=== PATIENT | female | born 1970 | race Caucasian/White ===

== ENCOUNTER 2016-05-27 14:17 | Emergency (ER) | payer BC ==
[2016-05-27 15:16] LABS: HEMOGLOBIN 15.4 gm/dl (12.3-15.3); RED BLOOD COUNT 5.13 M/UL (4.00-5.10)
[2016-05-27 15:36] LABS: BUN/CREATININE RATIO 16 (0-10)
== END 2016-05-27 18:15 | disposition home or self-care (01) ==
LOC: ER1 14:17
PROVIDERS: Emergency Medicine
DX: J40 Bronchitis, not specified as acute or chronic (principal); J44.9 Chronic obstructive pulmonary disease, unspecified; I10 Essential (primary) hypertension; Z88.0 Allergy status to penicillin; Z79.899 Other long term (current) drug therapy
CPT/HCPCS: 36415; 71020; 80053; 84484; 85025; 85379; 87040; 93005; 94640; 94664; 96365; 96375; 96376; 99285; J0696; J2270; J2405; J2930; J7050

== ENCOUNTER 2016-05-29 12:30 | Emergency (ER) | payer BC ==
[2016-05-29 13:20] LABS: HEMOGLOBIN 15.2 gm/dl (12.3-15.3); RED BLOOD COUNT 5.01 M/UL (4.00-5.10)
[2016-05-29 13:27] LABS: WHITE BLOOD COUNT 9.6 K/UL (4.5-11.0)
[2016-05-29 13:39] LABS: BUN/CREATININE RATIO 20 (0-10)
== END 2016-05-29 16:45 | disposition home or self-care (01) ==
LOC: ER1 12:30
PROVIDERS: Specialist/Technologist Athletic Trainer
DX: J44.1 Chronic obstructive pulmonary disease with (acute) exacerbation (principal); R09.02 Hypoxemia; R79.89 Other specified abnormal findings of blood chemistry; J45.909 Unspecified asthma, uncomplicated; Z88.0 Allergy status to penicillin; I10 Essential (primary) hypertension; Z90.710 Acquired absence of both cervix and uterus
CPT/HCPCS: 36415; 36600; 71020; 71250; 80053; 82550; 82553; 82803; 83605; 83874; 83880; 84484; 85025; 85379; 87040; 93005; 96374; 96375; 96376; 99284; J1642; J2270; J2405; J2930

== ENCOUNTER 2016-07-29 23:08 | Inpatient (IN) | payer BC ==
[~2016-07-29] VITALS: Ht 160 cm; Wt 58.1 kg
[2016-07-30 00:11] LABS: HEMOGLOBIN 15.4 gm/dl (12.3-15.3); RED BLOOD COUNT 5.12 M/UL (4.00-5.10); WHITE BLOOD COUNT 8.3 K/UL (4.5-11.0)
[2016-07-30 00:27] LABS: BUN/CREATININE RATIO 30 (0-10)
[2016-07-30] MEDS ORDERED: PROLASTIN C1000 MG IV (04:41)
[2016-07-30] MEDS ORDERED: ADVAIR 250-501 EACH INH (04:43)
[2016-07-30] MEDS ORDERED: PRILOSEC OTC20 MG PO (04:46)
[2016-07-30] MEDS ORDERED: SPIRIVA18 MCG INH (04:49)
[2016-07-30] MEDS ORDERED: DALIRESP500 MCG PO (04:49)
[2016-07-30] MEDS ORDERED: SINGULAIR10 MG PO (04:49)
[2016-07-30] MEDS ORDERED: CLARITIN10 MG PO (04:50)
[2016-07-30] MEDS ORDERED: NORVASC 5 MG TAB5 MG PO (04:52)
[2016-07-30] MEDS ORDERED: DOXYCYCLINE HY100 MG PO (04:53)
[2016-07-31 06:20] LABS: HEMOGLOBIN 13.6 gm/dl (12.3-15.3)
[2016-07-31 06:40] LABS: BUN/CREATININE RATIO 27 (0-10)
[2016-07-31 06:43] LABS: RED BLOOD COUNT 4.6 M/UL (4.00-5.10); WHITE BLOOD COUNT 16.8 K/UL (4.5-11.0)
[2016-07-31 14:31] LABS: BORDETELLA PERTUSSIS Not Detected (Negative); CHLAMYDOPHLA PNEUMONIAE Not Detected (Negative); CORONAVIRUS HKU1 Not Detected (Negative); CORONAVIRUS NL63 Not Detected (Negative); CORONAVIRUS OC43 Not Detected (Negative); CORONOAVIRUS 229E Not Detected (Negative); HUMAN METAPNEUMOVIRUS Not Detected (Negative); HUMAN RHINOVIRUS/ENTEROVIRUS Not Detected (Negative); INFLUENZA A Not Detected (Negative); INFLUENZA A H-1-2009 Not Detected (Negative); INFLUENZA A H1 Not Detected (Negative); INFLUENZA A H3 Not Detected (Negative); INFLUENZA B Not Detected (Negative); MYCOPLASMA PNEUMONIAE Not Detected (Negative); PARAINFLUENZA VIRUS 1 Not Detected (Negative); PARAINFLUENZA VIRUS 2 Not Detected (Negative); PARAINFLUENZA VIRUS 3 Not Detected (Negative); PARAINFLUENZA VIRUS 4 Not Detected (Negative); RESPIRATORY SYNCYTIAL VIRUS Not Detected (Negative)
--- NOTE | 2016-08-01 19:39 | NUR ---
PAIN MEDICATION GIVEN TODAY WITH RELIEF NOTED. LIFELINE WITHIN REACH. WILL CONTINUE TO MONITOR.
[2016-08-02 06:04] LABS: HEMOGLOBIN 13.7 gm/dl (12.3-15.3); RED BLOOD COUNT 4.67 M/UL (4.00-5.10); WHITE BLOOD COUNT 11.2 K/UL (4.5-11.0)
[2016-08-02 06:32] LABS: BUN/CREATININE RATIO 34 (0-10)
[2016-08-02] MEDS ORDERED: ALPRAZOLAM0.5 MG PO (20:41)
[2016-08-02] MEDS ORDERED: LEVAQUIN500 MG PO (20:42)
[2016-08-02] MEDS ORDERED: TESSALON PERLE100 MG PO (20:42)
[2016-08-02] MEDS ORDERED: IPRAT-ALBUT 0.5-3 ML INH (20:47)
[2016-08-02] MEDS ORDERED: PULMICORT0.5 MG/2 M INH (20:48)
[2016-08-02] MEDS ORDERED: PERFOROMIS20 MCG/2 M INH (20:48)
[2016-08-02] MEDS ORDERED: PREDNISONE10 MG PO ×2 (20:50→20:51)
[2016-08-02] MEDS ORDERED: PREDNISONE 10 M10 MG PO (20:50)
== END 2016-08-02 21:30 | disposition home or self-care (01) | DRG 189 ==
LOC: ER1 23:08 → M/S 07-30 02:30 → ZEROF 07-30 02:30 → M/S 07-30 04:02
PROVIDERS: Emergency Medicine; Hospitalist; Internal Medicine; ADMIT Internal Medicine
DX: J96.01 Acute respiratory failure with hypoxia (principal); J44.1 Chronic obstructive pulmonary disease with (acute) exacerbation; J44.0 Chronic obstructive pulmonary disease with (acute) lower respiratory infection; E88.01 Alpha-1-antitrypsin deficiency; J20.9 Acute bronchitis, unspecified; I10 Essential (primary) hypertension; R07.89 Other chest pain; F41.9 Anxiety disorder, unspecified; K21.9 Gastro-esophageal reflux disease without esophagitis; D72.829 Elevated white blood cell count, unspecified; F17.210 Nicotine dependence, cigarettes, uncomplicated; Z79.2 Long term (current) use of antibiotics; Z79.899 Other long term (current) drug therapy; Z88.0 Allergy status to penicillin; Z90.710 Acquired absence of both cervix and uterus; Z98.890 Other specified postprocedural states; Z82.49 Family history of ischemic heart disease and other diseases of the circulatory system
CPT/HCPCS: ECHO; 36415; 36600; 71020; 78452; 80048; 80053; 82803; 84484; 85025; 85027; 87040; 87486; 87581; 87633; 87798; 93005; 93017; 93306; 94640; 94664; 96365; 96375; 96376; 99285; A9502; J1650; J1956; J2270; J2405; J2785; J2920; J2930; J7050; Q9963

== ENCOUNTER 2016-08-03 18:28 | Emergency (ER) | payer BC ==
[~2016-08-03 18:28] MED LIST: ADVAIR 250-501 EACH INH; ALPRAZOLAM0.5 MG PO; CLARITIN10 MG PO; DALIRESP500 MCG PO; DOXYCYCLINE HY100 MG PO; IPRAT-ALBUT 0.5-3 ML INH; LEVAQUIN500 MG PO; NORVASC 5 MG TAB5 MG PO; PERFOROMIS20 MCG/2 M INH; PREDNISONE 10 M10 MG PO; PREDNISONE10 MG PO; PRILOSEC OTC20 MG PO; PROLASTIN C1000 MG IV; PULMICORT0.5 MG/2 M INH; SINGULAIR10 MG PO; SPIRIVA18 MCG INH; TESSALON PERLE100 MG PO
[2016-08-03 19:31] LABS: BUN/CREATININE RATIO 26 (0-10)
[2016-08-03 19:41] LABS: HEMOGLOBIN 14.8 gm/dl (12.3-15.3); RED BLOOD COUNT 5.04 M/UL (4.00-5.10); WHITE BLOOD COUNT 10.8 K/UL (4.5-11.0)
== END 2016-08-03 21:50 | disposition home or self-care (01) ==
LOC: ER1 18:28
PROVIDERS: Emergency Medicine
DX: F41.9 Anxiety disorder, unspecified (principal); I10 Essential (primary) hypertension; J44.9 Chronic obstructive pulmonary disease, unspecified; Z88.0 Allergy status to penicillin
CPT/HCPCS: 36415; 71020; 80053; 82550; 82553; 83605; 83874; 84443; 84484; 85025; 87081; 87880; 93005; 96374; 96375; 99285; J2270; J2405; J2930

== ENCOUNTER → 2016-11-09 | Outpatient (CLI) | payer BC | LOC: LAB 07:28 | DX: Z13.1 Encounter for screening for diabetes mellitus (principal); Z13.220 Encounter for screening for lipoid disorders; Z79.899 Other long term (current) drug therapy; Z02.89 Encounter for other administrative examinations ==

== ENCOUNTER → 2020-04-21 | Outpatient (CLI) | payer BC, OTHER ==
[~2020-04-21] MED LIST changes: +BENTYL 20MG TAB20 MG PO; +CEFEPIME HCL2 GM INJ; +CEFUROXIME250 MG PO; +COMBIVENT RESPIM4 GM INH; +COZAAR 25MG TAB25 MG PO; +CYCLOBENZAPRINE10 MG PO; +DIFLUCAN150 MG PO; +DOXYCYCLINE HY100 M2 PO; +DUONEB INH; +ELDERBERRY-VIT1 EACH PO; +FLUZONE QU60 MCG/015 IM; +GUMMI BEAR MUL1 EACH PO; +HYDROCODON-ACE1 EAC4 PO; +IBUPROFEN600 MG PO; +K-DUR TAB 20 M20 MEQ PO; +LAMICTAL25 MG PO; +LEVAQUIN750 MG PO; +LOMOTIL 2.5-0.1 EACH PO; +MEDROL4 MG PO; +MELATONIN5 MG PO; +METHYLPREDNISOLO4 M1 PO; +MYCOSTATIN100000 UTS PO; +PERCOCET 5/325 T1 EA PO; +PREDNISONE 20 M20 MG PO; +PREDNISONE 50 M50 MG PO; +PREDNISONE20 MG PO; +REGLAN10 MG PO; +TOBRAMYCIN60 MG/50 M IV; +TRELEGY ELLIPT1 EACH INH; +VALIUM 5 MG TAB5 MG PO; +VFEND200 MG PO; +VIBRAMYCIN100 MG PO; +VIIBRYD40 MG PO; +VITAMIN C 500500 MG PO; +VITAMIN D3125 MCG PO; +XYZAL5 MG PO; +ZINC50 M1 PO; +ZOFRAN ODT 4 MG4 MG PO; +ZOFRAN ODT 4 MG4 MG SL; +[UNRECOGNIZED DRUG - OTHER]; +[UNRECOGNIZED DRUG - OTHER] INH
== END ==
LOC: EROP 10:58
DX: Z20.822 Contact with and (suspected) exposure to COVID-19 (principal); Z11.59 Encounter for screening for other viral diseases
CPT/HCPCS: 0240U

== ENCOUNTER → 2020-04-22 | Outpatient (CLI) | payer BC, OTHER | LOC: EROP 11:49 | DX: Z20.822 Contact with and (suspected) exposure to COVID-19 (principal) | CPT/HCPCS: U0002 ==

== ENCOUNTER → 2020-04-23 | Outpatient (CLI) | payer BC, OTHER | LOC: KOH-I 16:26 | DX: R09.1 Pleurisy (principal); R91.8 Other nonspecific abnormal finding of lung field; F17.200 Nicotine dependence, unspecified, uncomplicated | CPT/HCPCS: 71046 ==

== ENCOUNTER 2020-05-08 15:51 | Emergency (ER) | payer BC, OTHER ==
[~2020-05-08 15:51] MED LIST changes: -CEFEPIME HCL2 GM INJ; -COZAAR 25MG TAB25 MG PO; -ELDERBERRY-VIT1 EACH PO; -GUMMI BEAR MUL1 EACH PO; -HYDROCODON-ACE1 EAC4 PO; -K-DUR TAB 20 M20 MEQ PO; -LAMICTAL25 MG PO; -MEDROL4 MG PO; -MELATONIN5 MG PO; -MYCOSTATIN100000 UTS PO; -TOBRAMYCIN60 MG/50 M IV; -VFEND200 MG PO; -VITAMIN C 500500 MG PO; -VITAMIN D3125 MCG PO; -XYZAL5 MG PO; -ZINC50 M1 PO
[2020-05-08 16:57] LABS: HEMOGLOBIN 13.3 gm/dl (12.3-15.3); RED BLOOD COUNT 4.48 M/UL (4.00-5.10); WHITE BLOOD COUNT 7.3 K/UL (4.5-11.0)
[2020-05-08 17:41] LABS: BUN/CREATININE RATIO 14 (0-10)
[2020-05-08] MEDS ORDERED: K-DUR TAB 20 M20 MEQ PO (18:36)
[2020-05-08] MEDS ORDERED: DOXYCYCLINE HY100 MG PO (18:36)
[2020-05-08] MEDS ORDERED: MEDROL4 MG PO (18:36)
== END 2020-05-08 19:03 | disposition home or self-care (01) ==
LOC: ER1 15:51
PROVIDERS: Emergency Medicine
DX: J44.1 Chronic obstructive pulmonary disease with (acute) exacerbation (principal); E87.6 Hypokalemia; I10 Essential (primary) hypertension; Z20.822 Contact with and (suspected) exposure to COVID-19; Z90.49 Acquired absence of other specified parts of digestive tract
CPT/HCPCS: 0240U; 36600; 71045; 80053; 82550; 82553; 82803; 83874; 83880; 84484; 85025; 85379; 87040; 96374; 96375; 96376; 99285; J1642; J2270; J2405; J2930

== ENCOUNTER 2020-05-14 16:08 | Observation (INO) | payer BC, OTHER ==
[~2020-05-14] VITALS: Ht 160 cm; Wt 59.0 kg
[~2020-05-14 16:08] MED LIST changes: +K-DUR TAB 20 M20 MEQ PO; +MEDROL4 MG PO
[2020-05-14 17:47] LABS: RED BLOOD COUNT 4.36 M/UL (4.00-5.10); WHITE BLOOD COUNT 8.4 K/UL (4.5-11.0)
[2020-05-14 18:06] LABS: BUN/CREATININE RATIO 11 (0-10)
[2020-05-14] MEDS ORDERED: VITAMIN C 500500 MG PO (19:04)
[2020-05-14] MEDS ORDERED: GUMMI BEAR MUL1 EACH PO (19:05)
[2020-05-14] MEDS ORDERED: VITAMIN D3125 MCG PO (19:06)
[2020-05-14] MEDS ORDERED: ELDERBERRY-VIT1 EACH PO (19:07)
[2020-05-14] MEDS ORDERED: ZINC50 M1 PO (19:09)
[2020-05-14] MEDS ORDERED: MELATONIN5 MG PO (19:09)
[2020-05-14] MEDS ORDERED: XYZAL5 MG PO (19:10)
[2020-05-14] MEDS ORDERED: COZAAR 25MG TAB25 MG PO (19:13)
[2020-05-14] MEDS ORDERED: VFEND200 MG PO (19:14)
[2020-05-15 08:16] LABS: RED BLOOD COUNT 4.07 M/UL (4.00-5.10); WHITE BLOOD COUNT 7.8 K/UL (4.5-11.0)
[2020-05-15 08:58] LABS: BUN/CREATININE RATIO 13 (0-10)
[2020-05-15] MEDS ORDERED: CEFEPIME HCL2 GM INJ (11:02)
[2020-05-15] MEDS ORDERED: HYDROCODON-ACE1 EAC4 PO (11:02)
[2020-05-15] MEDS ORDERED: TOBRAMYCIN60 MG/50 M IV (11:02)
[2020-05-15] MEDS ORDERED: MYCOSTATIN100000 UTS PO (11:05)
[2020-05-15] MEDS ORDERED: LAMICTAL25 MG PO (17:52)
== END 2020-05-15 16:17 | disposition home or self-care (01) ==
LOC: ER1 16:08 → CDU 18:49
PROVIDERS: Emergency Medicine; ADMIT Family Medicine
DX: R06.02 Shortness of breath (principal); R05 Cough; R07.9 Chest pain, unspecified; E87.6 Hypokalemia; F41.9 Anxiety disorder, unspecified; J44.9 Chronic obstructive pulmonary disease, unspecified; I10 Essential (primary) hypertension; Z90.49 Acquired absence of other specified parts of digestive tract; Z98.890 Other specified postprocedural states; Z20.822 Contact with and (suspected) exposure to COVID-19; Z88.0 Allergy status to penicillin; Z88.1 Allergy status to other antibiotic agents; Z79.899 Other long term (current) drug therapy
CPT/HCPCS: 71045; 80048; 80053; 80200; 82550; 82553; 83874; 83880; 84484; 85025; 85027; 87040; 93005; 94640; 94664; 96374; 96375; 96376; 99285; G0378; J0692; J1642; J1885; J2270; J2405; J3260; U0002

== ENCOUNTER 2020-08-27 11:00 | Emergency (ER) | payer BC, OTHER ==
[~2020-08-27] VITALS: Ht 160 cm; Wt 56.7 kg
[~2020-08-27 11:00] MED LIST changes: +CEFEPIME HCL2 GM INJ; +COZAAR 25MG TAB25 MG PO; +ELDERBERRY-VIT1 EACH PO; +GUMMI BEAR MUL1 EACH PO; +HYDROCODON-ACE1 EAC4 PO; +LAMICTAL25 MG PO; +MELATONIN5 MG PO; +MYCOSTATIN100000 UTS PO; +TOBRAMYCIN60 MG/50 M IV; +VFEND200 MG PO; +VITAMIN C 500500 MG PO; +VITAMIN D3125 MCG PO; +XYZAL5 MG PO; +ZINC50 M1 PO
[2020-08-27 11:48] LABS: HEMOGLOBIN 14.5 gm/dl (12.3-15.3); RED BLOOD COUNT 4.79 M/UL (4.00-5.10); WHITE BLOOD COUNT 9.5 K/UL (4.5-11.0)
[2020-08-27 12:14] LABS: BUN/CREATININE RATIO 21 (0-10)
== END 2020-08-27 16:02 | disposition home or self-care (01) ==
LOC: ER1 11:00
PROVIDERS: Emergency Medicine
DX: J44.1 Chronic obstructive pulmonary disease with (acute) exacerbation (principal); E88.01 Alpha-1-antitrypsin deficiency; Z20.822 Contact with and (suspected) exposure to COVID-19
CPT/HCPCS: 36600; 71045; 80053; 81001; 82550; 82553; 82803; 83605; 83874; 83880; 84484; 85025; 87040; 93005; 94640; 94664; 96374; 96375; 99285; J2185; J2270; J2405; J2930; J3260; J7030; U0002

== ENCOUNTER 2020-10-02 14:09 | Emergency (ER) | payer BC, OTHER ==
[2020-10-02 15:02] LABS: HEMOGLOBIN 13.2 gm/dl (12.3-15.3); RED BLOOD COUNT 4.41 M/UL (4.00-5.10); WHITE BLOOD COUNT 9.1 K/UL (4.5-11.0)
[2020-10-02 15:36] LABS: BUN/CREATININE RATIO 18 (0-10)
== END 2020-10-02 17:20 | disposition home or self-care (01) ==
LOC: ER1 14:09
PROVIDERS: Preventive Medicine Occupational Medicine
DX: T78.40XA Allergy, unspecified, initial encounter (principal)
CPT/HCPCS: 36600; 71045; 80053; 81001; 82550; 82553; 82803; 83690; 83874; 84484; 85025; 85652; 86140; 87086; 93005; 96374; 96375; 96376; 99284; J1200; J2060; J2270; J2930

== ENCOUNTER 2020-11-08 18:42 | Emergency (ER) | payer BC, OTHER | END 2020-11-08 21:49 | disposition home or self-care (01) | LOC: ER1 18:42 | DX: J02.9 Acute pharyngitis, unspecified (principal); Z23 Encounter for immunization; I10 Essential (primary) hypertension; J44.9 Chronic obstructive pulmonary disease, unspecified; Z88.1 Allergy status to other antibiotic agents; Z88.0 Allergy status to penicillin; Z88.8 Allergy status to other drugs, medicaments and biological substances | CPT/HCPCS: 99283; M0243; U0002 ==

== ENCOUNTER 2020-11-30 02:06 | Emergency (ER) | payer BC, OTHER ==
[2020-11-30 03:10] LABS: HEMOGLOBIN 12.5 gm/dl (12.3-15.3); RED BLOOD COUNT 4.27 M/UL (4.00-5.10); WHITE BLOOD COUNT 12.4 K/UL (4.5-11.0)
[2020-11-30 03:30] LABS: BUN/CREATININE RATIO 15 (0-10)
== END 2020-11-30 05:00 | disposition home or self-care (01) ==
LOC: ER1 02:06
PROVIDERS: Family Medicine
DX: J44.9 Chronic obstructive pulmonary disease, unspecified (principal); E88.01 Alpha-1-antitrypsin deficiency
CPT/HCPCS: 80053; 82550; 82553; 84484; 85025; 94640; 94664; 96374; 96375; 96376; 99284; J1642; J2270; J2930

== ENCOUNTER 2020-12-30 15:26 | Emergency (ER) | payer OTHER ==
[2020-12-30 17:05] LABS: HEMOGLOBIN 13.3 gm/dl (12.3-15.3); RED BLOOD COUNT 4.51 M/UL (4.00-5.10); WHITE BLOOD COUNT 7.3 K/UL (4.5-11.0)
[2020-12-30 18:47] LABS: BUN/CREATININE RATIO 12 (0-10)
[2020-12-30] MEDS ORDERED: PERCOCET 5/325 T1 EA PO (20:45)
== END 2020-12-30 21:07 | disposition home or self-care (01) ==
LOC: ER1 15:26
PROVIDERS: Emergency Medicine
DX: F15.23 Other stimulant dependence with withdrawal (principal); J44.9 Chronic obstructive pulmonary disease, unspecified; I10 Essential (primary) hypertension; Z90.710 Acquired absence of both cervix and uterus; Z20.822 Contact with and (suspected) exposure to COVID-19
CPT/HCPCS: 36600; 71045; 80053; 81001; 82550; 82553; 82803; 83605; 83874; 83880; 84484; 85025; 87040; 93005; 94640; 94664; 96374; 96375; 96376; 99285; J2270; J2405; J2930; U0002

== ENCOUNTER 2021-01-22 14:36 | Emergency (ER) | payer OTHER ==
[2021-01-22 15:22] LABS: HEMOGLOBIN 14.4 gm/dl (12.3-15.3); RED BLOOD COUNT 4.97 M/UL (4.00-5.10)
[2021-01-22 15:53] LABS: BUN/CREATININE RATIO 19 (0-10)
== END 2021-01-22 20:41 | disposition home or self-care (01) ==
LOC: ER1 14:36
PROVIDERS: Family Medicine
DX: J96.11 Chronic respiratory failure with hypoxia (principal); J44.9 Chronic obstructive pulmonary disease, unspecified; R40.0 Somnolence; I10 Essential (primary) hypertension; Z20.822 Contact with and (suspected) exposure to COVID-19; Z99.81 Dependence on supplemental oxygen; Z87.891 Personal history of nicotine dependence
CPT/HCPCS: 0241U; 36600; 71045; 71250; 80053; 82140; 82550; 82553; 82803; 83605; 84439; 84443; 84484; 85025; 85379; 85610; 87040; 94640; 94664; 96374; 96375; 96376; 99285; J2270; J2405

== ENCOUNTER 2021-05-23 11:07 | Inpatient (IN) | payer OTHER ==
[~2021-05-23] VITALS: Ht 160 cm; Wt 77.1 kg
[~2021-05-23 11:07] MED LIST changes: -XYZAL5 MG PO
[2021-05-23 12:43] LABS: HEMOGLOBIN 12.2 gm/dl (12.3-15.3); RED BLOOD COUNT 4.46 M/UL (4.00-5.10); WHITE BLOOD COUNT 8.5 K/UL (4.5-11.0)
[2021-05-23] MEDS ORDERED: PEPCID40 MG PO (23:22)
[2021-05-23] MEDS ORDERED: MUCINEX600 MG PO (23:24)
[2021-05-23] MEDS ORDERED: IMODIUM CAP 2 MG2 MG PO (23:27)
[2021-05-23] MEDS ORDERED: PREDNISONE10 MG PO (23:29)
[2021-05-23] MEDS ORDERED: ALBUTEROL2.5 MG/3 M INH (23:34)
[2021-05-23] MEDS ORDERED: CARAFATE1 GM PO (23:38)
[2021-05-24 01:43] LABS: HEMOGLOBIN 11.3 gm/dl (12.3-15.3); RED BLOOD COUNT 4.22 M/UL (4.00-5.10); WHITE BLOOD COUNT 7.2 K/UL (4.5-11.0)
[2021-05-24 02:11] LABS: BUN/CREATININE RATIO 13 (0-10)
[2021-05-24] MEDS ORDERED: ONDANSETRON ODT4 MG PO (09:04)
[2021-05-24] MEDS ORDERED: DEXILANT60 MG PO (09:05)
[2021-05-24] MEDS ORDERED: SUCRALFATE1 GM/10 ML PO (09:07)
[2021-05-24] MEDS ORDERED: LAMICTAL25 MG PO ×2 (09:09→23:28)
[2021-05-24] MEDS ORDERED: ROBITUSSIN AC480 ML PO (09:11)
[2021-05-24] MEDS ORDERED: SODIUM CHLORIDE3 ML INH (09:13)
[2021-05-24] MEDS ORDERED: PROVENTIL HFA6.7 GM INH (09:14)
[2021-05-24] MEDS ORDERED: MELATONIN5 M2 PO (09:16)
[2021-05-24] MEDS ORDERED: COLACE100 MG PO (09:17)
[2021-05-24] MEDS ORDERED: XYZAL5 MG PO (19:10)
[2021-05-24] MEDS ORDERED: PAIN RELIEF1 EACH TP (23:23)
[2021-05-24] MEDS ORDERED: CYCLOBENZAPRINE5 MG PO (23:36)
[2021-05-24] MEDS ORDERED: METOCLOPRAMIDE10 MG PO (23:37)
[2021-05-26 02:11] LABS: HEMOGLOBIN 10.8 gm/dl (12.3-15.3); RED BLOOD COUNT 4.02 M/UL (4.00-5.10)
[2021-05-26 02:12] LABS: WHITE BLOOD COUNT 12.9 K/UL (4.5-11.0)
[2021-05-26 02:33] LABS: BUN/CREATININE RATIO 24 (0-10)
[2021-05-27 03:15] LABS: HEMOGLOBIN 10.9 gm/dl (12.3-15.3); RED BLOOD COUNT 4.02 M/UL (4.00-5.10)
[2021-05-27 03:23] LABS: BUN/CREATININE RATIO 21 (0-10); WHITE BLOOD COUNT 18.3 K/UL (4.5-11.0)
[2021-05-28 06:08] LABS: HEMOGLOBIN 11.8 gm/dl (12.3-15.3); RED BLOOD COUNT 4.42 M/UL (4.00-5.10); WHITE BLOOD COUNT 20.6 K/UL (4.5-11.0)
[2021-05-28 06:47] LABS: BUN/CREATININE RATIO 21 (0-10)
[2021-05-29 07:15] LABS: RED BLOOD COUNT 4.14 M/UL (4.00-5.10); WHITE BLOOD COUNT 17.5 K/UL (4.5-11.0)
[2021-05-29 07:42] LABS: BUN/CREATININE RATIO 24 (0-10)
[2021-05-30 06:44] LABS: HEMOGLOBIN 10.6 gm/dl (12.3-15.3); RED BLOOD COUNT 3.95 M/UL (4.00-5.10); WHITE BLOOD COUNT 19.1 K/UL (4.5-11.0)
[2021-05-30 06:59] LABS: BUN/CREATININE RATIO 26 (0-10)
--- NOTE | 2021-05-30 10:10 | NUR ---
AUNG HAS BP OF 187/109. PROVIDER CALLED WITH NO ANSWER. WILL CALL AGAIN. WILL CONTINUE TO MONITOR.
--- NOTE | 2021-05-30 11:44 | NUR ---
UPON RECHECK PATIENTS BP WAS 151/88. PROVIDER NOTIFIED AND ORDERED DILTIAZEM 1400 DOSE TO BE GIVEN NOW. WILL CONTINUE TO MONITOR.
[2021-05-31 06:17] LABS: HEMOGLOBIN 10.8 gm/dl (12.3-15.3); RED BLOOD COUNT 3.99 M/UL (4.00-5.10); WHITE BLOOD COUNT 18.7 K/UL (4.5-11.0)
[2021-05-31 06:38] LABS: BUN/CREATININE RATIO 25 (0-10)
[2021-05-31] MEDS ORDERED: CARDIZEM 60MG T60 MG PO (10:14)
[2021-05-31] MEDS ORDERED: PREDNISONE 10 M10 MG PO (10:14)
[2021-05-31] MEDS ORDERED: HYDROCODON-ACE1 EAC4 PO (10:14)
== END 2021-05-31 16:17 | disposition home or self-care (01) | DRG 189 ==
LOC: ER1 11:07 → PROG CARE 16:22 → MED SURG 4 16:22 → CDU 16:22 → PROG CARE 18:37 → MED SURG 4 05-26 09:16
PROVIDERS: Emergency Medicine; Internal Medicine; Physician Assistant; ADMIT Family Medicine
PROC: B24BZZZ Ultrasonography of Heart with Aorta (ICD-10-PCS; principal; 2021-05-31)
DX: J96.21 Acute and chronic respiratory failure with hypoxia (principal); J44.1 Chronic obstructive pulmonary disease with (acute) exacerbation; E87.3 Alkalosis; J96.22 Acute and chronic respiratory failure with hypercapnia; I10 Essential (primary) hypertension; Z20.822 Contact with and (suspected) exposure to COVID-19; F41.9 Anxiety disorder, unspecified; F32.A Depression, unspecified; J20.8 Acute bronchitis due to other specified organisms; E87.6 Hypokalemia; E11.43 Type 2 diabetes mellitus with diabetic autonomic (poly)neuropathy; K31.84 Gastroparesis; K21.9 Gastro-esophageal reflux disease without esophagitis; I07.1 Rheumatic tricuspid insufficiency; K31.89 Other diseases of stomach and duodenum; Z88.1 Allergy status to other antibiotic agents; Z88.0 Allergy status to penicillin; Z90.710 Acquired absence of both cervix and uterus; Z99.81 Dependence on supplemental oxygen; Z98.891 History of uterine scar from previous surgery; Z87.891 Personal history of nicotine dependence; Z82.49 Family history of ischemic heart disease and other diseases of the circulatory system; Z82.5 Family history of asthma and other chronic lower respiratory diseases; Z83.3 Family history of diabetes mellitus; Z87.01 Personal history of pneumonia (recurrent); Z98.51 Tubal ligation status; Z81.1 Family history of alcohol abuse and dependence; Z83.6 Family history of other diseases of the respiratory system; Z79.4 Long term (current) use of insulin
CPT/HCPCS: ECHO; 0240U; 36415; 36600; 71045; 71046; 80048; 80053; 80198; 82550; 82553; 82803; 83735; 83880; 84484; 85025; 85027; 85379; 87070; 87205; 93005; 93306; 93970; 94640; 94660; 94664; 94667; 94668; 94760; 96374; 96375; 96376; 99285; J0360; J1100; J1335; J1650; J1940; J2185; J2270; J2405; J2920; J2930; Q9967

== ENCOUNTER 2021-11-06 07:43 | Emergency (ER) | payer OTHER ==
[~2021-11-06 07:43] MED LIST changes: +ALBUTEROL2.5 MG/3 M INH; +CARAFATE1 GM PO; +CARDIZEM 60MG T60 MG PO; +COLACE100 MG PO; +CYCLOBENZAPRINE5 MG PO; +DEXILANT60 MG PO; +GAVISCON EXTRA355 ML PO; +IMODIUM CAP 2 MG2 MG PO; +MELATONIN5 M2 PO; +METOCLOPRAMIDE10 MG PO; +MUCINEX600 MG PO; +ONDANSETRON ODT4 MG PO; +PAIN RELIEF1 EACH TP; +PEPCID40 MG PO; +PROVENTIL HFA6.7 GM INH; +ROBITUSSIN AC480 ML PO; +SODIUM CHLORIDE3 ML INH; +SUCRALFATE1 GM/10 ML PO; +XYZAL5 MG PO
[2021-11-06 08:49] LABS: HEMOGLOBIN 11.7 gm/dl (12.3-15.3); RED BLOOD COUNT 4.86 M/UL (4.00-5.10); WHITE BLOOD COUNT 6.9 K/UL (4.5-11.0)
[2021-11-06 09:21] LABS: BUN/CREATININE RATIO 10 (0-10)
== END 2021-11-06 13:49 | disposition home or self-care (01) ==
LOC: ER1 07:43
PROVIDERS: Nurse Practitioner
DX: R10.9 Unspecified abdominal pain (principal); R10.817 Generalized abdominal tenderness; K21.9 Gastro-esophageal reflux disease without esophagitis; J45.909 Unspecified asthma, uncomplicated; Z90.710 Acquired absence of both cervix and uterus; I10 Essential (primary) hypertension; Z88.0 Allergy status to penicillin; Z88.1 Allergy status to other antibiotic agents; Z88.8 Allergy status to other drugs, medicaments and biological substances
CPT/HCPCS: 71045; 80053; 81001; 83605; 83690; 85025; 87086; 96361; 96374; 96375; 96376; 99284; J1170; J2270; J2405; Q9967